=== PATIENT | male | born 1970 | race African-American/Black ===

== ENCOUNTER 2020-08-02 09:19 | Emergency (ER) | payer SELFPAY ==
[2020-08-02 09:33] VITALS: BP 113/68
[2020-08-02] MEDS ORDERED: LIDOCAINE 1% INJ (10 MG/ML) 10 ML MDV INJ ONE (10:39)
--- NOTE | 2020-08-02 10:39 | ER Document Report ---
ED General - General Chief Complaint: Finger Injury Stated Complaint: FINGER SWOLLEN Time Seen by Provider: 08/02/20 10:30 Mode of Arrival: Ambulatory Information source: Patient TRAVEL OUTSIDE OF THE [place] IN LAST 30 DAYS: No - HPI Notes: Weeklong history of painful infection around the nail of the right 5th finger. Swelling at that area only. No redness or swelling extending up the finger onto the hand. Denies any other problems. No fever or chills. Otherwise in his usual state of health. - Related Data Allergies/Adverse Reactions: No Known Allergies Allergy (Unverified 07/14/11 09:45) Past Medical History - General Information source: Patient - Social History Smoking Status: Current Every Day Smoker Frequency of alcohol use: None Drug Abuse: Marijuana Family History: Reviewed & Not Pertinent - Medical History Medical History: Negative Notes: Patient denies any significant medical history. Review of Systems - Review of Systems Notes: Constitutional: No fever or chills. Skin: As per HPI. Physical Exam - Vital signs Vitals: Temp Pulse Resp BP Pulse Ox 98.1 F 76 16 113/68 96 08/02/20 09:27 08/02/20 09:27 08/02/20 09:27 08/02/20 09:27 08/02/20 09:27 - Notes Notes: General: Well-developed well-nourished male no acute distress. Vital signs and nursing notes were reviewed on the chart. Right hand: Patient has a fairly obvious paronychia along the radial aspect of the nail of the right little finger. This is confined to the distal phalanx. There is no evidence of lymphangitic streaking or cellulitis extending up the finger hand or arm. Distal neurovascular intact capillary refill is normal and range of motion is full. Course - Re-evaluation Re-evalutation: 08/02/20 11:29 I explained to the patient the proposed procedure which included a digital block for anesthesia followed by incision and drainage of the paronychia, irrigation, and dressing it using tube gauze. I then left the room and gave instructions to the nursing staff as to the supplies that I would need and entered the appropriate orders into the computer. There was a bit of a delay in obtaining the tube gauze dressing material from supply. During this time I checked on the patient once. He seemed somewhat impatient. By 11:25 AM the patient had eloped from the department and left without completing service. - Vital Signs Vital signs: Temp Pulse Resp BP Pulse Ox 98.1 F 76 16 113/68 96 08/02/20 09:27 08/02/20 09:27 08/02/20 09:27 08/02/20 09:27 08/02/20 09:27 - Laboratory Results Critical Laboratory Results Reviewed: No Critical Results - Radiology Results Critical Radiology Results Reviewed: No Critical Results Discharge - Discharge Clinical Impression: Paronychia of finger of right hand Condition: Stable Disposition: AGAINST MEDICAL ADVICE
[2020-08-02] MEDS ORDERED: LIDOCAINE 1% INJ-PF (10 MG/ML) 30 ML SDV INJ ONE (10:40)
== END 2020-08-02 11:18 | disposition left against medical advice (07) ==
LOC: ER 09:19
DX: L03.011 Cellulitis of right finger (principal); F17.200 Nicotine dependence, unspecified, uncomplicated; F12.10 Cannabis abuse, uncomplicated; Z53.29 Procedure and treatment not carried out because of patient's decision for other reasons
CPT/HCPCS: 99281